=== PATIENT | male | born 1945 | race Caucasian/White ===

== ENCOUNTER → 2024-11-07 07:20 | Outpatient (REF) | payer MEDICARE, SELFPAY | LOC: RAD 07:20 | PROVIDERS: ATTENDING PHYSICIAN Nurse Practitioner Family | DX: R10.9 Unspecified abdominal pain (principal) | CPT/HCPCS: 36415; 76700 ==

== ENCOUNTER 2025-07-13 21:24 | Emergency (ER) | payer MEDICARE, SELFPAY ==
[2025-07-13 21:34] VITALS: BP 173/101
[2025-07-13 21:51] LABS: Hematocrit 41.8 % (39.0-52.0); Hemoglobin 14.9 g/dL (13.0-18.0); Mean Corp Hgb Conc. 35.6 g/dL (33.0-37.0); Mean Corpuscular Volume 82.3 fL (80.0-94.0); Nucleated Red Blood Cells % 0 % (-); Platelet Count 218 10^3/uL (130-400); Red Cell Dist. Width 13.2 % (11.5-14.5)
[2025-07-13 22:12] LABS: ALT (SGPT) 22 U/L (0-50); AST (SGOT) 19 U/L (17-59); Albumin 4.6 g/dl (3.5-5.0); Alkaline Phosphatase 75 U/L (38-126); Blood Urea Nitrogen 12 mg/dl (9-20); Calcium 9.3 mg/dl (8.4-10.2); Carbon Dioxide 22 mmol/L (22-30); Chloride 100 mmol/L (98-107); Glucose 240 mg/dl (70-99); Lipase 338 U/L (23-300); Potassium 4.3 mmol/L (3.5-5.1); Sodium 129 mmol/L (135-145); Total Protein 6.6 g/dl (6.3-8.2); eGFR > 60.00
[2025-07-14 00:06] VITALS: BMI 19.7
--- NOTE | 2025-07-14 00:34 | ED.GENMED ---
History of Present Illness
General
Chief Complaint: Abdominal Pain
Time Seen by Provider: 07/14/25 00:34
History of Present Illness
History of Present Illness:
PAST MEDICAL HISTORY AND REVIEW OF OLD RECORDS
- The patient has history of COPD and hyperlipidemia and is a diabetic
Note:
CHIEF COMPLAINT(S)
Abdominal pain for three days.
HISTORY OF PRESENT ILLNESS
The patient is a 80-year-old male who presents to the emergency department with a three-day history of abdominal pain. The pain seems generalized across the abdomen but is believed to be centered around the middle, near the umbilicus. The patients
blood tests initially appeared unremarkable, except for elevated blood glucose levels noted to be in the 200s. The patient is reportedly diabetic and is currently on metformin. The patient has not experienced vomiting, diarrhea, or constipation.
Observationally, he has been seen favoring his right side while holding his abdomen and displaying significant discomfort.
PLAN
A computed tomography (CT) scan is planned for further investigation to identify any potential abnormality causing the abdominal pain. Intravenous access will be established prior to the scan.
PHYSICAL EXAM
- General: Well appearing in no distress
- HEENT: Moist oral mucosa
- Cardiovascular: No murmurs, normal heart rate, regular rhythm, No chest wall tenderness
- Pulmonary: No respiratory distress, breath sounds are clear and equal
- Abdomen: Soft with no peritoneal signs, there is very mild diffuse tenderness that seems more prominent in the periumbilical region
- Neurologic: Excellent strength all extremities, no coordination deficits
- Psychiatric: Appropriate mental status, normal insight and judgement
- Extremities: Nontender, no edema, moves all extremities equally
- Skin: No rash, no lesions
DIFFERENTIAL DIAGNOSIS
The Differential Diagnosis includes, in no particular order and is not limited to:
1. Gastroenteritis
2. Appendicitis
3. Constipation
4. Pancreatitis
5. Gastroesophageal reflux disease (GERD)
6. Intestinal obstruction
7. Diabetic ketoacidosis (given his history of diabetes)
8. Peptic ulcer disease
9. Gallbladder disease
10. Urinary tract infection
RADIOLOGY
- CT abdomen pelvis obtained�this showed no acute abnormality; radiologist suggested the possibility of a filling defect in the left femoral veins however the patient clinically does not have any evidence for DVT
LABS
- CBC is normal, sodium 129 however the glucose is 240, lactic is 1.0, lipase is 338
UPDATE
-SUMMARY OF ENCOUNTER
The patient, a 80-year-old male with a three-day history of abdominal pain, was evaluated in the emergency department. Management included conducting a CT scan of the abdomen, which appeared normal. The scan showed no significant abnormalities in
the abdominal organs, though the radiologist noted a potential filling defect in the vein suggestive of a possible clot, which was considered unlikely due to the absence of swelling. Emergency treatment included administering famotidine (Pepcid), an
H2 pasquale, to manage stomach acid.
DISPOSITION
Discharge
ASSESSMENT
The patients abdominal pain was evaluated with a CT scan that ruled out significant abdominal pathology. A possible venous clot was considered but deemed unlikely due to the lack of physical symptoms like swelling.
EMERGENCY TREATMENTS ADMINISTERED
Famotidine (Pepcid) was given to the patient as an H2 pasquale to manage gastric acid.
PLAN
Continue observation for any development of symptoms such as swelling around the abdomen or legs. If swelling or any other symptoms arise, the patient is advised to return for further evaluation.
INDEPENDENT REVIEW OF LABS AND INTERPRETATION OF TESTS
My independent interpretation of the CT scan is that it shows no significant abnormalities in the abdominal organs and no evidence of venous clotting indicated by the absence of swelling or other signs.
PATIENT EDUCATION AND COUNSELING
The patient was advised to monitor for any new symptoms, particularly swelling, and to return to the emergency department if such symptoms develop. Information about famotidine as an [id number] option for managing gastric acid was provided.
FOLLOW-UP INSTRUCTIONS
If symptoms such as swelling develop or if the condition worsens, the patient should return for further evaluation.
MEDICATION RECONCILIATION
Famotidine (Pepcid), administered during the visit as an H2 pasquale.
MEDICAL DECISION MAKING
1. Number and Complexity of Problems Addressed:
Chronic conditions affecting care [diabetes]. Differential Diagnosis includes gastroenteritis, appendicitis, constipation, pancreatitis, gastroesophageal reflux disease, intestinal obstruction, diabetic ketoacidosis, peptic ulcer disease,
gallbladder disease, and urinary tract infection.
2. Data:
Category 1:
- Reviewed CT scan results independently.
Category 3:
- Discussion of the radiologists interpretation regarding potential filling defect in the vein but determined not warranted for further immediate imaging or intervention due to no evidence of swelling.
3. Risk:
Prescription drug management was considered for gastric discomfort, and famotidine (Pepcid) was administered.
DIAGNOSIS
Abdominal pain, unspecified (R10.9)
Diabetes mellitus without complications (E11.9)
Past History
Past History
ED Past Medical History: HTN and NIDDM
Social History
Tobacco: Former smoker
Alcohol: Daily
Drug: None
Personal:
Living: with family
Employment: Retired
Family History
Family History: Hypertension
Phy Exam
Physical Exam
Physical Exam:
See HPI
Course
Orders/Labs/Results
Orders:
Orders
07/13/25 21:43
Complete Blood Count/With Diff Urgent
Comprehensive Metabolic Panel Urgent
Lactate Level [Lactic Acid] Urgent
Lipase Urgent
07/14/25 00:53
CT Abd/pelvis W Iv Cont Urgent
Comment:
Reason For Exam: diffuse abd pain
0.9% Sodium Chloride 500 ml [Nss] 500 ml IV BOLUS
Famotidine [Pepcid] 20 mg IV NOW STA
Abnormal Lab Results
07/13/25
21:43
Sodium 129 L mmol/L
(135-145)
Glucose 240 H mg/dl
(70-99)
Lipase 338 H U/L
(23-300)
07/13/25 21:43
08/22/25 21:43
Vital Signs
Initial and Last Documented VS:
Initial Vital Signs
Temp Pulse Resp BP Pulse Ox
36.7 C 81 16 173/101 98
07/13/25 21:34 07/13/25 21:34 07/13/25 21:34 07/13/25 21:34 07/13/25 21:34
Last Documented Vital Signs
Temp Pulse Resp BP Pulse Ox
36.7 C 96 16 173/101 63
07/13/25 21:34 07/14/25 01:15 07/14/25 01:15 07/13/25 21:34 07/14/25 01:36
*Pulse Oximetry
SaO2: 100
Oxygen Mode of Delivery: Room air
Patient hypoxic: no
*Critical Care Note
Total Time (30-74mins, 75-104mins- exclusive of procedures): Not Applicable
ED Attending Note
-
Portions of this chart may have been created with voice recognition software.� Occasional wrong word or��sound alike� substitutions may have occurred due to the inherent limitations of voice recognition software.
Discharge Plan
Departure
Patient Disposition: Home (Routine Discharge)
Date of Disposition: 07/14/25
Time of Disposition: 02:48
Patient with high blood pressure during this ER visit?: Yes
Discharge Problem:
Abdominal pain
Instructions: Abdominal Pain, BLOOD PRESSURE
Prescriptions:
No Action
aspirin 325 MG tablet
325 mg PO Q48H
Patient Comments:
states took 3 of these today d/t c/o cp
glimepiride 2 MG tablet
2 mg PO BID
metformin 1,000 MG tablet
2,000 mg PO .WITH DINNER
aspirin 81 MG tablet,chewable
81 mg PO Q48H
lisinopril 2.5 MG tablet
2.5 mg PO DAILY
repaglinide 1 MG tablet
1 mg PO BID
fenofibrate nanocrystallized 145 MG tablet
145 mg PO HS
Pravastatin Sodium
40 mg PO HS
Timolol Maleate
1 drp BOTH EYES DAILY
omeprazole [Prilosec] 40 MG capsule,delayed release(DR/EC)
40 mg PO DAILY Qty: 20 0RF
ondansetron 4 MG tablet,disintegrating
4 mg PO TIDPRN PRN (Reason: NAUSEA) Qty: 20 0RF
Referrals:
Annamaria Borges CRNP [Family Provider, Family Practice]
Colton Benítez MD [Active, Gastroenterology]
Activity Restrictions/Additional Instructions:
The CAT scan of the abdomen pelvis shows no acute abnormality. The radiologist did question the possibility of a blood clot in the left femoral vein however clinically, this does not appear to be present as there is no swelling in the left lower
extremity. However if you develop swelling in the left leg, return here. Regarding the abdominal discomfort, we did give you some IV fluids and Pepcid you can continue trying [id number] Pepcid at home. I have also given you the contact
information for a local GI doctor that you could try following up with as well, Dr. Benítez.
Interventions
Interventions:
*Risk Screen - Suicide Last Done: 07/13/25 21:34
*General Assessment Last Done: 07/13/25 21:34
*Neglect/Abuse Screening Last Done: 07/13/25 21:34
*ED- Fall Risk Assessment Last Done: 07/14/25 00:06
*ED COVID-19 Vaccine History Last Done: 07/14/25 00:06
HX-Qdfrzz-Qhzcgqvpbj Assessment Last Done: 07/14/25 00:06
Discharge Date and Time
Print Language: MACANESE
[2025-07-14] MEDS: PEPCID 20 MG IV (01:39)
[2025-07-14] MEDS: NSS 500 IV (01:39)
== END 2025-07-14 03:17 | disposition home or self-care (01) ==
LOC: EMR 21:24
PROVIDERS: EMERGENCY PHYSICIAN Emergency Medicine; FAMILY PHYSICIAN Nurse Practitioner Family
DX: R10.9 Unspecified abdominal pain (principal); E11.65 Type 2 diabetes mellitus with hyperglycemia; I10 Essential (primary) hypertension; E78.5 Hyperlipidemia, unspecified; J44.9 Chronic obstructive pulmonary disease, unspecified; Z79.84 Long term (current) use of oral hypoglycemic drugs; Z87.891 Personal history of nicotine dependence; Z82.49 Family history of ischemic heart disease and other diseases of the circulatory system
CPT/HCPCS: 99284; 96374; 96361; 74177; 80053; 83605; 83690; 85025; Q9967